=== PATIENT | female | born 1955 | race Caucasian/White ===

== ENCOUNTER → 2024-01-15 10:13 | Outpatient (REF) | payer MEDICARE, SELFPAY | LOC: HWWDC 10:13 | PROVIDERS: ATTENDING PHYSICIAN Family Medicine | DX: Z12.31 Encounter for screening mammogram for malignant neoplasm of breast (principal) | CPT/HCPCS: 77063; 77067 ==

== ENCOUNTER → 2024-03-29 07:33 | Outpatient (REF) | payer MEDICARE, SELFPAY ==
[2024-03-29 10:02] LABS: % Basophils 0.4 % (0-2); % Eosinophils 2.2 % (0-6); % Immature Granulocytes 0.2 % (0-0.5); % Lymphocytes 34.1 % (20.5-51.1); % Monocytes 8.3 % (1.7-9.3); % Neutrophils 54.8 % (42.2-75.2); Absolute Eosinophils 0.1 10^3/uL (0-0.7); Absolute Lymphocytes 1.7 10^3/uL (1.2-3.4); Absolute Monocytes 0.4 10^3/uL (0.1-0.6); Absolute Neutrophils 2.7 10^3/uL (1.4-6.5); Hematocrit 40.5 % (37.0-47.0); Mean Corp Hgb Conc. 32.1 g/dL (33.0-37.0); Mean Corpuscular Hgb 30.8 pg (27.0-31.0); Mean Platelet Volume 10.5 fL (7.4-10.4); Nucleated Red Blood Cells % 0 %; Platelet Count 470 10^3/uL (130-400); Red Blood Cell Count 4.22 10^6/uL (4.20-5.40); Red Cell Dist. Width 13.1 % (11.5-14.5); White Blood Cell Count 4.9 10^3/uL (4.8-10.8)
[2024-03-29 10:14] LABS: ALT (SGPT) 20 U/L (0-35); AST (SGOT) 28 U/L (14-36); Albumin 3.8 g/dl (3.5-5.0); Alkaline Phosphatase 92 U/L (38-126); Blood Urea Nitrogen 19 mg/dl (7-17); Calcium 9.5 mg/dl (8.4-10.2); Carbon Dioxide 26 mmol/L (22-30); Chloride 105 mmol/L (98-107); Glucose 89 mg/dl (70-99); HDL Cholesterol 64 mg/dl; LDL Cholesterol, Calculated 107 mg/dl; Potassium 4.8 mmol/L (3.5-5.1); Sodium 138 mmol/L (135-145); Total Bilirubin 0.9 mg/dl (0.2-1.3); Total Cholesterol 184 mg/dl (50-199); Total Protein 6.9 g/dl (6.3-8.2); Triglyceride 69 mg/dl (10-149); Very Low Density Lipoprotein 13 mg/dl (0-30); eGFR > 60.00
[2024-03-29 10:39] LABS: Vitamin D, 25-OH*** 39.9 ng/mL (30-80)
[2024-03-29 11:06] LABS: Vitamin B12 693 pg/ml (239-931)
== END ==
LOC: HWLAB 07:33
PROVIDERS: ATTENDING PHYSICIAN Family Medicine
DX: R53.83 Other fatigue (principal); R73.01 Impaired fasting glucose; E55.9 Vitamin D deficiency, unspecified; F41.9 Anxiety disorder, unspecified; E78.5 Hyperlipidemia, unspecified
CPT/HCPCS: 36415; 80053; 80061; 82306; 82607; 83036; 84443; 85025

== ENCOUNTER → 2024-04-26 07:15 | Outpatient (REF) | payer MEDICARE, SELFPAY ==
[2024-04-26 13:12] LABS: % Basophils 0.3 % (0-2); % Eosinophils 1.8 % (0-6); % Immature Granulocytes 0.2 % (0-0.5); % Lymphocytes 40.3 % (20.5-51.1); % Monocytes 8.3 % (1.7-9.3); % Neutrophils 49.1 % (42.2-75.2); Absolute Eosinophils 0.1 10^3/uL (0-0.7); Absolute Lymphocytes 2.5 10^3/uL (1.2-3.4); Absolute Monocytes 0.5 10^3/uL (0.1-0.6); Absolute Neutrophils 3.1 10^3/uL (1.4-6.5); Hematocrit 39.9 % (37.0-47.0); Hemoglobin 13.1 g/dL (12.0-16.0); Mean Corp Hgb Conc. 32.8 g/dL (33.0-37.0); Mean Corpuscular Hgb 30.9 pg (27.0-31.0); Mean Corpuscular Volume 94.1 fL (81.0-99.0); Mean Platelet Volume 10.9 fL (7.4-10.4); Nucleated Red Blood Cells % 0 %; Platelet Count 311 10^3/uL (130-400); Red Blood Cell Count 4.24 10^6/uL (4.20-5.40); Red Cell Dist. Width 14.1 % (11.5-14.5); White Blood Cell Count 6.3 10^3/uL (4.8-10.8)
== END ==
LOC: HWLAB 07:15
PROVIDERS: ATTENDING PHYSICIAN Family Medicine; REFERRING PHYSICIAN Nurse Practitioner Adult Health
DX: D75.839 Thrombocytosis, unspecified (principal); J47.9 Bronchiectasis, uncomplicated; Z87.01 Personal history of pneumonia (recurrent)
CPT/HCPCS: 36415; 71046; 85025

== ENCOUNTER → 2024-05-03 11:21 | Outpatient (REF) | payer MEDICARE, SELFPAY ==
[2024-05-03 15:55] LABS: IgA 121 mg/dl (70-400); IgG 946 mg/dl (700-1600); IgM 109 mg/dl (40-230)
[2024-05-05 23:35] LABS: IgG Subclass 1 425 mg/dL (240-1118); IgG Subclass 2 333 mg/dL (124-549); IgG Subclass 3 52 mg/dL (21-134); IgG Subclass 4 54 mg/dL (1-123)
== END ==
LOC: HWLAB 11:21
PROVIDERS: ATTENDING PHYSICIAN Nurse Practitioner Adult Health; FAMILY PHYSICIAN Family Medicine
DX: J21.9 Acute bronchiolitis, unspecified (principal); J98.8 Other specified respiratory disorders; J47.9 Bronchiectasis, uncomplicated
CPT/HCPCS: 36415; 82784; 82787

== ENCOUNTER → 2024-08-16 15:58 | Outpatient (REF) | payer MEDICARE, SELFPAY | LOC: RAD 15:58 | PROVIDERS: ATTENDING PHYSICIAN Internal Medicine | DX: J98.4 Other disorders of lung (principal) | CPT/HCPCS: 93005 ==

== ENCOUNTER 2024-11-11 14:45 | Outpatient (RCR) | payer MEDICARE, SELFPAY | END 2024-11-12 11:34 | disposition home or self-care (01) | LOC: PURB 14:45 | PROVIDERS: ATTENDING PHYSICIAN Internal Medicine; FAMILY PHYSICIAN Nurse Practitioner Acute Care | DX: J98.4 Other disorders of lung (principal); J47.9 Bronchiectasis, uncomplicated; J98.8 Other specified respiratory disorders | CPT/HCPCS: G0237; G0239 ==

== ENCOUNTER 2024-11-30 14:45 | Outpatient (RCR) | payer MEDICARE, SELFPAY | END 2024-12-03 09:32 | disposition home or self-care (01) | LOC: PURB 14:45 | PROVIDERS: ATTENDING PHYSICIAN Internal Medicine; FAMILY PHYSICIAN Nurse Practitioner Acute Care | DX: J98.4 Other disorders of lung (principal); J47.9 Bronchiectasis, uncomplicated; J21.9 Acute bronchiolitis, unspecified; J98.8 Other specified respiratory disorders | CPT/HCPCS: G0239 ==

== ENCOUNTER → 2025-02-17 11:43 | Outpatient (REF) | payer MEDICARE, SELFPAY | LOC: WDC 11:43 | PROVIDERS: ATTENDING PHYSICIAN Obstetrics & Gynecology Gynecology; FAMILY PHYSICIAN Family Medicine | DX: Z12.31 Encounter for screening mammogram for malignant neoplasm of breast (principal) | CPT/HCPCS: 77063; 77067 ==

== ENCOUNTER → 2025-08-11 07:41 | Outpatient (REF) | payer MEDICARE, SELFPAY ==
[2025-08-11 09:57] LABS: Hematocrit 39.9 % (37.0-47.0); Hemoglobin 13.1 g/dL (12.0-16.0); Mean Corp Hgb Conc. 32.8 g/dL (33.0-37.0); Mean Corpuscular Volume 95.7 fL (81.0-99.0); Nucleated Red Blood Cells % 0 %; Platelet Count 309 10^3/uL (130-400); Red Cell Dist. Width 13.0 % (11.5-14.5)
[2025-08-11 10:00] LABS: ALT (SGPT) 22 U/L (0-35); AST (SGOT) 29 U/L (14-36); Albumin 4.2 g/dl (3.5-5.0); Alkaline Phosphatase 50 U/L (38-126); Blood Urea Nitrogen 18 mg/dl (7-17); Calcium 9.2 mg/dl (8.4-10.2); Carbon Dioxide 27 mmol/L (22-30); Chloride 104 mmol/L (98-107); Glucose 87 mg/dl (70-99); HDL Cholesterol 71 mg/dl; LDL Cholesterol, Calculated 109 mg/dl; Potassium 4.4 mmol/L (3.5-5.1); Sodium 136 mmol/L (135-145); Total Protein 7.0 g/dl (6.3-8.2); Very Low Density Lipoprotein 12 mg/dl (0-30); eGFR > 60.00
[2025-08-11 10:02] LABS: Glycohemoglobin (HgbA1c) 5.4 % (4.0-5.9)
[2025-08-11 10:18] LABS: Vitamin D, 25-OH*** 40.7 ng/mL (30-80)
[2025-08-11 10:31] LABS: TSH 3.19 uIU/ml (0.47-4.68)
== END ==
LOC: HWLAB 07:41
PROVIDERS: ATTENDING PHYSICIAN Family Medicine
DX: E55.9 Vitamin D deficiency, unspecified (principal); R73.03 Prediabetes; J98.4 Other disorders of lung; E78.5 Hyperlipidemia, unspecified
CPT/HCPCS: 36415; 80053; 80061; 82306; 83036; 84443; 85025